=== PATIENT | female | born 1945 ===

== ENCOUNTER 2019-06-10 14:50 | Emergency (ER) | payer SELFPAY ==
[~2019-06-10] VITALS: Ht 160 cm; Wt 83.9 kg
[2019-06-10 15:50] LABS: BASOPHILS % (AUTO) 0 % (0-10); EOSINOPHILS # (AUTO) 0.1 10^3/uL (0.0-0.3); EOSINOPHILS % (AUTO) 1 % (0-10); HEMATOCRIT 42 % (35-52); HEMOGLOBIN 14.7 G/DL (11.5-16.0); LYMPHOCYTES # (AUTO) 3.7 X 10^3 (1.0-4.0); LYMPHOCYTES % (AUTO) 32 % (12-44); MEAN CORPUSCULAR HEMOGLOBIN 30 PG (25-34); MEAN CORPUSCULAR HGB CONC 35 G/DL (32-36); MEAN CORPUSCULAR VOLUME 85 FL (80-99); MEAN PLATELET VOLUME 9.3 FL (7.4-10.4); MONOCYTES % (AUTO) 8 % (0-12); NEUTROPHILS # (AUTO) 6.7 X 10^3 (1.8-7.8); NEUTROPHILS % (AUTO) 59 % (42-75); PLATELET COUNT 272 10^3/uL (130-400); RED CELL DISTRIBUTION WIDTH 12.8 % (10.0-14.5); WHITE BLOOD COUNT 11.5 10^3/uL (4.3-11.0)
[2019-06-10] MEDS ORDERED: IOHEXOL 350 MG/ML 100 ML (OMNIPAQUE 350) VIAL IV ONE ×2 (16:00→16:15)
[2019-06-10] MEDS ORDERED: HOLD METFORMIN - RECEIVED CONTRAST 20 ML VIAL IV SCH ×2 (16:00→16:15)
[2019-06-10] MEDS ORDERED: NS 100 ML (IVPB) BAG IV ONE ×2 (16:00→16:15)
[2019-06-10 16:07] LABS: ALANINE AMINOTRANSFERASE 17 U/L (0-55); ALBUMIN 4.3 GM/DL (3.2-4.5); ALKALINE PHOSPHATASE 85 U/L (40-136); BILIRUBIN,TOTAL 0.4 MG/DL (0.1-1.0); BUN/CREATININE RATIO 13; CALCIUM 9.9 MG/DL (8.5-10.1); CARBON DIOXIDE 22 MMOL/L (21-32); CHLORIDE 107 MMOL/L (98-107); CREATININE SERUM 0.79 MG/DL (0.60-1.30); GFR ESTIMATED > 60; GLUCOSE 94 MG/DL (70-105); SODIUM 140 MMOL/L (135-145); TOTAL PROTEIN 8.3 GM/DL (6.4-8.2)
--- NOTE | 2019-06-10 16:46 | Diagnostic Imaging Report ---
CLINICAL INDICATION: Patient with inferior left eye swelling. EXAM: CT scan of the maxillofacial structures performed with 100 cc of Omnipaque 350 IV contrast. Coronal and sagittal reformatted images were created. Auto Exposure Controls were utilized during the CT exam to meet ALARA standards for radiation dose reduction. COMPARISON: None. FINDINGS: There is a small amount of extracranial soft tissue swelling and fat stranding in the left periorbital region. All the swelling is preseptal in location. There is no abscess in the region. There is no subcutaneous air or radiodense foreign object. The globes and orbits are otherwise unremarkable. There is a small amount of secretions in the sphenoid sinus. There is no lymphadenopathy. IMPRESSION: 1: There is nonspecific extracranial soft tissue swelling in the left periorbital region, which is all preseptal. There is no abscess or mass seen. Left periorbital cellulitis may be considered. Orbits and globes are otherwise unremarkable. 2: Remainder of this exam shows no other significant abnormality. Dictated by: Dictated on workstation # [id number]
[2019-06-10] MEDS ORDERED: cefTRIAXone FOR IV USE 1,000 MG in WATER (STERILE) FOR INJECTION 10 ML IV ONE (17:15)
--- NOTE | 2019-06-10 17:17 | ED EENT ---
History of Present Illness General Chief Complaint: Facial Problems Stated Complaint: FACIAL SWELLING Nursing Triage Note: swelling on the left side of face since yesterday she went to the clinic and they told her to come to the ER because of infection. Denies difficulty breathing States she started amoxicillin yesterday Source: patient Exam Limitations: no limitations History of Present Illness Date Seen by Provider: Jun 10, 2019 Time Seen by Provider: 15:31 Allergies and Home Medications Allergies Coded Allergies: No Allergy Information Available (Unverified , 06/10/19) Past Oahghvh-Xxijlc-Pquihs Hx Patient Social History Alcohol Use: Denies Use Recreational Drug Use: No Smoking Status: Never a Smoker Recent Foreign Travel: No Contact w/Someone Who Travel: No Recent Infectious Disease Expo: No Recent Hopitalizations: No Seasonal Allergies Seasonal Allergies: No Physical Exam Vital Signs Vital Signs - First Documented 06/10/19 14:57 Temp 96.1 Pulse 82 Resp 20 B/P (MAP) 185/82 (116) Pulse Ox 97 O2 Delivery Room Air Height, Weight, BMI Height: 5'3.00" Weight: 185lbs. oz. 83.590257ff; BMI Method:Stated Progress/Results/Core Measures Results/Orders Lab Results Laboratory Tests Test 06/10/19 15:45 Range/Units White Blood Count 11.5 H 4.3-11.0 10^3/uL Red Blood Count 4.99 4.35-5.85 10^6/uL Hemoglobin 14.7 11.5-16.0 G/DL Hematocrit 42 35-52 % Mean Corpuscular Volume 85 80-99 FL Mean Corpuscular Hemoglobin 30 25-34 PG Mean Corpuscular Hemoglobin Concent 35 32-36 G/DL Red Cell Distribution Width 12.8 10.0-14.5 % Platelet Count 272 130-400 10^3/uL Mean Platelet Volume 9.3 7.4-10.4 FL Neutrophils (%) (Auto) 59 42-75 % Lymphocytes (%) (Auto) 32 12-44 % Monocytes (%) (Auto) 8 0-12 % Eosinophils (%) (Auto) 1 0-10 % Basophils (%) (Auto) 0 0-10 % Neutrophils # (Auto) 6.7 1.8-7.8 X 10^3 Lymphocytes # (Auto) 3.7 1.0-4.0 X 10^3 Monocytes # (Auto) 1.0 0.0-1.0 X 10^3 Eosinophils # (Auto) 0.1 0.0-0.3 10^3/uL Basophils # (Auto) 0.0 0.0-0.1 10^3/uL Sodium Level 140 135-145 MMOL/L Potassium Level 4.0 3.6-5.0 MMOL/L Chloride Level 107 98-107 MMOL/L Carbon Dioxide Level 22 21-32 MMOL/L Anion Gap 11 5-14 MMOL/L Blood Urea Nitrogen 10 7-18 MG/DL Creatinine 0.79 0.60-1.30 MG/DL Estimat Glomerular Filtration Rate > 60 BUN/Creatinine Ratio 13 Glucose Level 94 70-105 MG/DL Calcium Level 9.9 8.5-10.1 MG/DL Corrected Calcium 9.7 8.5-10.1 MG/DL Total Bilirubin 0.4 0.1-1.0 MG/DL Aspartate Amino Transf (AST/SGOT) 19 5-34 U/L Alanine Aminotransferase (ALT/SGPT) 17 0-55 U/L Alkaline Phosphatase 85 40-136 U/L Total Protein 8.3 H 6.4-8.2 GM/DL Albumin 4.3 3.2-4.5 GM/DL My Orders Orders - KASSANDRA BRAMBILA Ct Neck (Soft Tissue) W (06/10/19 15:31) Comprehensive Metabolic Panel (06/10/19 15:31) Ed Iv/Invasive Line Start (06/10/19 15:31) Cbc With Automated Diff (06/10/19 15:31) Iohexol Injection (Omnipaque 350 Mg/Ml 1 (06/10/19 16:00) Received Contrast (Hold Metformin- Contr (06/10/19 16:00) Ns (Ivpb) (Sodium Chloride 0.9% Ivpb Bag (06/10/19 16:00) Iohexol Injection (Omnipaque 350 Mg/Ml 1 (06/10/19 16:15) Di Iv Start (Assessment) .IV start (06/10/19 16:08) Received Contrast (Hold Metformin- Contr (06/10/19 16:15) Ns (Ivpb) (Sodium Chloride 0.9% Ivpb Bag (06/10/19 16:15) Ceftriaxone For Iv Use (Rocephin For I (06/10/19 17:15) Medications Given in ED Current Medications Medications Dose Ordered Sig/Minh Route Start Time Stop Time Status Last Admin Dose Admin Ceftriaxone Sodium 1000 mg/ Sterile Water 10 ml @ 200 mls/hr ONCE ONCE IV 06/10/19 17:15 06/10/19 17:17 06/10/19 17:12 200 MLS/HR Iohexol 75 ml ONCE ONCE IV 06/10/19 16:00 06/10/19 16:01 DC 06/10/19 16:35 100 ML Sodium Chloride 100 ml ONCE ONCE IV 06/10/19 16:15 06/10/19 16:16 DC 06/10/19 16:36 80 ML Vital Signs/I&O 06/10/19 14:57 Temp 96.1 Pulse 82 Resp 20 B/P (MAP) 185/82 (116) Pulse Ox 97 O2 Delivery Room Air Blood Pressure Mean: 116 Departure Impression Primary Impression: Cellulitis of face Disposition: HOME, SELF-CARE Condition: Stable/Unchanged Departure-Patient Inst. Decision time for Depature: 17:16 Referrals: [facility] (PCP) Primary Care Physician Patient Instructions: Cellulitis (Skin Infection), Adult (DC) Add. Discharge Instructions: Continue take medications as previously prescribed. Call tomorrow morning to schedule an appointment to be followed up for next Friday at [facility] for a recheck.06/14/19 Return back to the emergency room for worsening symptoms or concerns as needed. All discharge instructions reviewed with patient and/or family. Voiced understanding. KASSANDRA BRAMBILA Jun 10, 2019 17:17
[2019-06-10 17:32] VITALS: BP 147/68
--- OUTSIDE RECORDS SUMMARY | 2019-06-11 00:35 | XMS REPORT | Continuity of Care Document ---
Author Organization Unknown Address Unknown Phone Unavailable Allergies There is no data. Medications There is no data. Problems There is no data. Procedures There is no data. Results There is no data. Encounters ACCT No. Visit Date/Time Discharge Status Pt. Type Provider Facility Loc./Unit Complaint [id number] 05/26/2019 14:30:00 05/26/2019 23:59:59 [facility]
== END 2019-06-10 17:33 | disposition home or self-care (01) ==
LOC: ER 14:52
DX: L03.211 Cellulitis of face (principal)
CPT/HCPCS: 36415; 70491; 80053; 85025